=== PATIENT | female | born 1960 | race Caucasian/White ===

== ENCOUNTER → 2017-04-23 10:10 | Outpatient (POV) | payer OTHER, SELFPAY ==
[2017-04-23 10:56] VITALS: BP 158/91; PULSE 74; RESP 18; TEMP 37.1; O2SAT 100
--- NOTE | 2017-04-23 11:20 | HMH.PMCON ---
Assessment and Plan (1) Lumbosacral radiculopathy due to degenerative joint disease of spine Current visit: Yes Status: Chronic Category: Medical Code(s): M47.27 - Other spondylosis with radiculopathy, lumbosacral region (2) Degenerative joint disease (DJD) of lumbar spine Current visit: Yes Status: Chronic Qualifiers: Spinal osteoarthritis complication: with radiculopathy Qualified Code(s): M47.26 - Other spondylosis with radiculopathy, lumbar region Category: Medical Code(s): M47.816 - Spondylosis without myelopathy or radiculopathy, lumbar region - Assessment and plan all Dx Assessment and Plan for all problems:: We will seek approval and plan on lumbar epidural steroid injection under fluoroscopy at L4-L5. For now she is to continue with her Tylenol 3. HPI - Data of Consult Patient: new to practice Consult date: 04/23/17 Requesting Physician: Bennett Plummer MD Primary Care Provider: Demian Nova MD - Consult Narrative Reason for consult: Low back pain and leg pain History of present illness: Ms. Palumbo is a 56 year old female who has a long history of low back pain and leg pain. She has not had any injections in her back. She is currently on Tylenol 3 which is not giving her adequate relief. She has done physical therapy which has not given her adequate relief. Her MRI does show significant degenerative changes with bulging disc at L2-L3, L3-L4, L4-L5 and L5-S1 with significant neuroforaminal narrowing at L2-L3 and L5-S1. It is thought that she would benefit from a lumbar epidural steroid injection. She rates her pain at a 10 out of 10. She currently uses a walker for assistance. Most of her pain is in the back going down her legs right greater than left. She has had a right hip replacement which still is causing her problems. She also has some numbness and weakness down her legs. CC: Bennett Plummer MD [facility] History I have reviewed the patient's past medical history: Yes Medical History: Reports:: Hypertension Denies:: Diabetes Mellitus Type 1 Other Medical History: Reports: Arthritis (OA) - *Social History Smoking Status: Current every day smoker Tobacco Type: cigarettes # Packs/Day (cigarettes): 1 Alcohol Intake: never Occupational Status: disabled - Psychiatric History Expresses thoughts of harming self/others: None Suicide Plan Description: No Plan *Family Hx:: Cancer, Hypertension Review of Systems - Review of Systems Review of systems:: pertinent systems reviewed and negative unless documented below - *Musculoskeletal Reports abnormal walking, Reports back pain, Reports numbness, Reports radiating pain into limb, Reports stiffness - *Neurologic Reports abnormal walking, Reports radiating pain Meds Home Medications Medication Instructions Recorded Confirmed Type APAP 300Mg W/Cod 30Mg Thp 1 keerthi PO TID 04/23/17 04/23/17 History [Acetaminophen w/Codeine #3 Take Home Pack (6)] Albuterol Sulfate [Proventil-HFA 1 - 2 puffs IH Q4HP PRN 04/23/17 04/23/17 History 90mcg/puff Inh] Atorvastatin Calcium [Atorvastatin 20 mg PO DAILY 04/23/17 04/23/17 History 20mg Tab] Buspirone HCl [Buspar 10mg tablet] 10 mg PO DAILY 04/23/17 04/23/17 History Calcium Carbonate [Tums 500mg 500 mg PO Q4HP PRN 04/23/17 04/23/17 History chewtab] Calcium Phosphate Trib/Vit D3 1 each PO DAILY 04/23/17 04/23/17 History [Calcium + Vitamin D3 Gummies] Dicyclomine HCl [Bentyl 10mg 10 mg PO DAILY 04/23/17 04/23/17 History capsule] Lidocaine [Lidoderm 5% transdermal 1 each TP Q24H 04/23/17 04/23/17 History patch] Magnesium Oxide [Magnesium] 400 mg PO DAILY 04/23/17 04/23/17 History Melatonin 5 mg PO HS 04/23/17 04/23/17 History Metoprolol Tartrate [Lopressor 25 mg PO BID 04/23/17 04/23/17 History 25mg tablet] Trazodone HCl 50 mg PO HS 04/23/17 04/23/17 History Venlafaxine HCl [Venlafaxine HCl 75 mg PO DAILY 04/23/17 04/23/17 History ER] Venlafaxine HC
--- NOTE | 2017-04-23 11:23 | P.CONS_ITS ---
Assessment and Plan (1) Lumbosacral radiculopathy due to degenerative joint disease of spine Current visit: Yes Status: Chronic Category: Medical Code(s): M47.27 - Other spondylosis with radiculopathy, lumbosacral region (2) Degenerative joint disease (DJD) of lumbar spine Current visit: Yes Status: Chronic Qualifiers: Spinal osteoarthritis complication: with radiculopathy Qualified Code(s): M47.26 - Other spondylosis with radiculopathy, lumbar region Category: Medical Code(s): M47.816 - Spondylosis without myelopathy or radiculopathy, lumbar region - Assessment and plan all Dx Assessment and Plan for all problems:: We will seek approval and plan on lumbar epidural steroid injection under fluoroscopy at L4-L5. For now she is to continue with her Tylenol 3. HPI - Data of Consult Patient: new to practice Consult date: 04/23/17 Requesting Physician: Bennett Plummer MD Primary Care Provider: Demian Nova MD - Consult Narrative Reason for consult: Low back pain and leg pain History of present illness: Ms. Palumbo is a 56 year old female who has a long history of low back pain and leg pain. She has not had any injections in her back. She is currently on Tylenol 3 which is not giving her adequate relief. She has done physical therapy which has not given her adequate relief. Her MRI does show significant degenerative changes with bulging disc at L2-L3, L3-L4, L4-L5 and L5-S1 with significant neuroforaminal narrowing at L2-L3 and L5-S1. It is thought that she would benefit from a lumbar epidural steroid injection. She rates her pain at a 10 out of 10. She currently uses a walker for assistance. Most of her pain is in the back going down her legs right greater than left. She has had a right hip replacement which still is causing her problems. She also has some numbness and weakness down her legs. CC: Bennett Plummer MD [facility] History I have reviewed the patient's past medical history: Yes Medical History: Reports:: Hypertension Denies:: Diabetes Mellitus Type 1 Other Medical History: Reports: Arthritis (OA) - *Social History Smoking Status: Current every day smoker Tobacco Type: cigarettes # Packs/Day (cigarettes): 1 Alcohol Intake: never Occupational Status: disabled - Psychiatric History Expresses thoughts of harming self/others: None Suicide Plan Description: No Plan *Family Hx:: Cancer, Hypertension Review of Systems - Review of Systems Review of systems:: pertinent systems reviewed and negative unless documented below - *Musculoskeletal Reports abnormal walking, Reports back pain, Reports numbness, Reports radiating pain into limb, Reports stiffness - *Neurologic Reports abnormal walking, Reports radiating pain Meds Home Medications Medication Instructions Recorded Confirmed Type APAP 300Mg W/Cod 30Mg Thp 1 keerthi PO TID 04/23/17 04/23/17 History [Acetaminophen w/Codeine #3 Take Home Pack (6)] Albuterol Sulfate [Proventil-HFA 1 - 2 puffs IH Q4HP PRN 04/23/17 04/23/17 History 90mcg/puff Inh] Atorvastatin Calcium [Atorvastatin 20 mg PO DAILY 04/23/17 04/23/17 History 20mg Tab] Buspirone HCl [Buspar 10mg tablet] 10 mg PO DAILY 04/23/17 04/23/17 History Calcium Carbonate [Tums 500mg 500 mg PO Q4HP PRN 04/23/17 04/23/17 History chewtab] Calcium Phosphate Trib/Vit D3 1 each PO DAILY 04/23/17 04/23/17 History [Calcium + Vitamin D3 Gummies] Dicyclomine HCl [Bentyl 10mg 10 mg PO DAILY
== END ==
PROVIDERS: PCP Emergency Medicine; Visit Provider Anesthesiology
DX: M47.26 Other spondylosis with radiculopathy, lumbar region (principal)
CPT/HCPCS: 99202

== ENCOUNTER 2017-06-01 12:37 | Day surgery (SDC) | payer OTHER, SELFPAY ==
[2017-06-01 13:25] VITALS: BP 145/68; PULSE 74; TEMP 36.7; O2SAT 98; BMI 29.5
--- NOTE | 2017-06-01 14:00 | HMH.PMPROC ---
- Procedure Date: 06/01/17 Time: 14:00 Anesthesiologist:: Bennett Plummer MD Complications:: None Pre-procedure Diagnosis:: Degenerative disc disease of lumbar spine with lumbar radiculopathy symptoms Post-procedure Diagnosis:: Same Indications for Procedure:: This patient is a pleasant 56-year-old white female who we are treating for low back pain with lumbar radiculopathy symptoms. She has had a right hip replacement and had several problems with her right hip. She has pain radiating into her groin and down her legs in particular on the right side. We will do a lumbar epidural steroid injection today to see if this will give her some relief. MRI does show significant degenerative changes with bulging disc at L2-L3, L3-L4, L4-L5 and L5-S1 with neuroforaminal narrowing at L2-L3 and L5-S1. Procedure Details:: Lumbar epidural steroid injection under fluoroscopy Informed consent was obtained and the risk and benefits of the procedure was explained to the patient. The patient was taken to the procedure room. The patient was placed prone on the procedure table. The patient was prepped and draped in sterile fashion. C-arm fluoroscopy was used to view the lumbar spine. Skin and subcutaneous tissues were anesthetized using lidocaine. I placed an 18-gauge epidural needle and advanced into the L4-L5 interspace using fluoroscopic guidance and [id number] to air. After confirmation of needle placement in the epidural space with dye I injected 2 mL of lidocaine 1.5% with Depo-Medrol 80 mg. Patient tolerated the procedure well with no complications. Plan and Disposition:: We will follow-up with her in 2 weeks. We will reevaluate her symptoms at that time. If she does not get any relief of her right hip and right leg symptoms we may look at her hip as cause of her pain symptoms.
[2017-06-01 14:08] VITALS: BP 166/88; PULSE 66; RESP 20
[2017-06-01 14:09] VITALS: BP 143/68; PULSE 68; RESP 20
--- NOTE | 2017-06-01 14:09 | P.PCN_ITS ---
- Procedure Date: 06/01/17 Time: 14:00 Anesthesiologist:: Bennett Plummer MD Complications:: None Pre-procedure Diagnosis:: Degenerative disc disease of lumbar spine with lumbar radiculopathy symptoms Post-procedure Diagnosis:: Same Indications for Procedure:: This patient is a pleasant 56-year-old white female who we are treating for low back pain with lumbar radiculopathy symptoms. She has had a right hip replacement and had several problems with her right hip. She has pain radiating into her groin and down her legs in particular on the right side. We will do a lumbar epidural steroid injection today to see if this will give her some relief. MRI does show significant degenerative changes with bulging disc at L2-L3, L3-L4, L4-L5 and L5-S1 with neuroforaminal narrowing at L2-L3 and L5- S1. Procedure Details:: Lumbar epidural steroid injection under fluoroscopy Informed consent was obtained and the risk and benefits of the procedure was explained to the patient. The patient was taken to the procedure room. The patient was placed prone on the procedure table. The patient was prepped and draped in sterile fashion. C-arm fluoroscopy was used to view the lumbar spine. Skin and subcutaneous tissues were anesthetized using lidocaine. I placed an 18-gauge epidural needle and advanced into the L4-L5 interspace using fluoroscopic guidance and [id number] to air. After confirmation of needle placement in the epidural space with dye I injected 2 mL of lidocaine 1.5 % with Depo-Medrol 80 mg. Patient tolerated the procedure well with no complications. Plan and Disposition:: We will follow-up with her in 2 weeks. We will reevaluate her symptoms at that time. If she does not get any relief of her right hip and right leg symptoms we may look at her hip as cause of her pain symptoms.
[2017-06-01 14:14] VITALS: BP 139/75; PULSE 74; O2SAT 98
== END 2017-06-01 14:20 | disposition home or self-care (01) ==
LOC: SC.PAINP 12:38
PROVIDERS: PCP Emergency Medicine; Visit Provider Anesthesiology
DX: M51.16 Intervertebral disc disorders with radiculopathy, lumbar region (principal)
CPT/HCPCS: 62323; J1040; Q9966

== ENCOUNTER → 2017-06-18 14:36 | Outpatient (POV) | payer OTHER, SELFPAY ==
[2017-06-18 14:42] VITALS: BP 150/65; PULSE 77; RESP 18; TEMP 36.4; O2SAT 95; BMI 29.5
--- NOTE | 2017-06-18 16:20 | HMH.PAINSOAP ---
[facility] Pain Management SOAP Note Subjective:: Patient is a pleasant 56-year-old white female who presents today for follow-up after lumbar epidural steroid injection. Patient states she had no relief from this injection. Patient states most of her pain is in her low back and right hip. Patient has not been seen by a neurosurgeon. Patient states years ago she was told by a surgeon that if she had surgery she would be wheelchair bound. Patient does not remember the name of the surgeon. Patient and I had a long discussion about her symptomology. Most of her pain being in her right hip which was replaced and her right leg. Also in her low back. Patient denies any pain in her left leg. Patient rates her pain a 9 out of 10 today. Patient is currently being medically managed with Tylenol 3 and clonazepam. Patient is asking me about prescription medications. When I discussed with her she was unsure what she was taking. She states she does not know she is taking any anti-inflammatories or not. ROS General: no recent weight change, no fever, no sleep disturbances Respiratory: no cough, no shortness of air, no recurring pulmonary infections Cardiovascular/Peripheral Vascular: No chest pain, No palpitations, no edema, no shortness of breath. Gastrointestinal: no incontinence, normal bowel movements reported Genitourinary: no incontinence Musculoskeletal: Back pain, right hip pain Psychiatric: normal mood/ affect Neurological: Weakness in the right lower extremity at times, [denies balance issues] Objective:: Physical Exam General: Alert and oriented x3, no acute distress, pleasant and cooperative, [on room air] Lungs: Resps E/U, Symmetrical chest expansion, Eyes: PERRL Musculoskeletal: Flexion and extension of lumbar spine somewhat guarded secondary to pain, deep tendon reflexes normal, strength in upper and lower extremities [5/5], [abnormal gait noted] Neurological: speech clear, welder apprentice arc equal, no gross sensory deficits Assessment:: Degenerative disc disease of the lumbar spine with lumbar radiculopathy symptoms, right hip pain Plan:: Patient does have recent MRI showing nerve impingement. I believe it would be beneficial to have a neurosurgeon opinion on this. Patient and I discussed potentially a neurostimulator if surgery is not an option. Patient states that she is scared of surgery. And I told her that I think that whether she decides to have surgery not an opinion would be beneficial. We will send her to Dr. Viera. I discussed with the patient that she needs to bring her disc of her MRI to the appointment. Patient is currently living in [facility]. This note was dictated using voice recognition software and may contain errors or omissions
--- NOTE | 2017-06-18 16:24 | P.CONS_ITS ---
[facility] Pain Management SOAP Note Subjective:: Patient is a pleasant 56-year-old white female who presents today for follow-up after lumbar epidural steroid injection. Patient states she had no relief from this injection. Patient states most of her pain is in her low back and right hip. Patient has not been seen by a neurosurgeon. Patient states years ago she was told by a surgeon that if she had surgery she would be wheelchair bound. Patient does not remember the name of the surgeon. Patient and I had a long discussion about her symptomology. Most of her pain being in her right hip which was replaced and her right leg. Also in her low back. Patient denies any pain in her left leg. Patient rates her pain a 9 out of 10 today. Patient is currently being medically managed with Tylenol 3 and clonazepam. Patient is asking me about prescription medications. When I discussed with her she was unsure what she was taking. She states she does not know she is taking any anti-inflammatories or not. ROS General: no recent weight change, no fever, no sleep disturbances Respiratory: no cough, no shortness of air, no recurring pulmonary infections Cardiovascular/Peripheral Vascular: No chest pain, No palpitations, no edema, no shortness of breath. Gastrointestinal: no incontinence, normal bowel movements reported Genitourinary: no incontinence Musculoskeletal: Back pain, right hip pain Psychiatric: normal mood/ affect Neurological: Weakness in the right lower extremity at times, [denies balance issues] Objective:: Physical Exam General: Alert and oriented x3, no acute distress, pleasant and cooperative, [ on room air] Lungs: Resps E/U, Symmetrical chest expansion, Eyes: PERRL Musculoskeletal: Flexion and extension of lumbar spine somewhat guarded secondary to pain, deep tendon reflexes normal, strength in upper and lower extremities [5/5], [abnormal gait noted] Neurological: speech clear, dental services director equal, no gross sensory deficits Assessment:: Degenerative disc disease of the lumbar spine with lumbar radiculopathy symptoms , right hip pain Plan:: Patient does have recent MRI showing nerve impingement. I believe it would be beneficial to have a neurosurgeon opinion on this. Patient and I discussed potentially a neurostimulator if surgery is not an option. Patient states that she is scared of surgery. And I told her that I think that whether she decides to have surgery not an opinion would be beneficial. We will send her to Dr. Viera. I discussed with the patient that she needs to bring her disc of her MRI to the appointment. Patient is currently living in [facility]. This note was dictated using voice recognition software and may contain errors or omissions
== END ==
PROVIDERS: PCP Emergency Medicine; Visit Provider Clinical Nurse Specialist Family Health
DX: M25.551 Pain in right hip (principal); M54.16 Radiculopathy, lumbar region
CPT/HCPCS: 99212

== ENCOUNTER 2018-02-10 13:53 | Observation (INO) ==
--- NOTE | 2018-02-10 14:21 | Emergency Department Note ---
ED Disposition Clinical Impression: Coronary artery disease, Tobacco use disorder, Chest pain, Non-compliance Disposition: Still a Patient Condition on Discharge: Fair Referrals: Demian Nova MD [Primary Care Provider] - - Critical Care Critical Care Time: No Attestation: On 02/10/18, the high probability of a clinically significant, sudden or life threatening deterioration of the following system(s) required my full and direct attention, intervention and personal management. The time I documented below is in addition to time spent performing reported procedures but includes the following listed in this critical care notation. Medical Decision Making - Basilio Inquiry Pt receiving controlled substance: No Basilio was queried for this patient: No Vital Signs: 02/10/18 14:07 02/10/18 14:10 02/10/18 14:30 Temperature 98.1 F Temperature Source Oral Pulse Rate [Right Brachial] 80 83 81 Respiratory Rate 16 Blood Pressure [Right Arm] 138/70 138/70 158/77 H Blood Pressure Mean [Right Arm] 92 92 104 Blood Pressure Source [Right Arm] Automatic Cuff Automatic Cuff Automatic Cuff Blood Pressure Position [Right Arm] Sitting Sitting Sitting 02 Sat by Pulse Oximetry 100 93 L 95 Oxygen Delivery Method Room Air 02/10/18 15:00 Temperature Temperature Source Pulse Rate [Right Brachial] 86 Respiratory Rate Blood Pressure [Right Arm] 142/72 H Blood Pressure Mean [Right Arm] 95 Blood Pressure Source [Right Arm] Automatic Cuff Blood Pressure Position [Right Arm] Sitting 02 Sat by Pulse Oximetry 95 Oxygen Delivery Method - Lab Data Lab Results 02/10/18 14:15: WBC 10.5, RBC 3.63 L, Hgb 11.1 L, Hct 34.9 L, MCV 96.3, MCH 30.7, MCHC 31.8, RDW 13.9, Plt Count 285, MPV 7.5, Neut % (Auto) 73.1, Lymph % (Auto) 17.2, Coffey % (Auto) 6.4, Eos % (Auto) 3.0, Baso % (Auto) 0.3, Neut # (Auto) 7.7, Lymph # (Auto) 1.8, Coffey # (Auto) 0.7, Eos # (Auto) 0.3, Baso # (Auto) 0.0 02/10/18 14:15: Sodium 137, Potassium 3.2 L, Chloride 102, Carbon Dioxide 27, Anion Gap 11.2, BUN 9, Creatinine 0.75, Estimated Creat Clear 135, Estimated GFR 80, Est GFR ( Amer) 97, Glucose 93, Calcium 8.1 L, Troponin I < 0.02 02/10/18 14:15: D-Dimer 323 02/10/18 14:15: B-Natriuretic Peptide 34 Result diagrams: 02/10/18 14:15 02/10/18 14:15 Orders (Tests/Meds): ED MEDICATIONS Generic Name Dose Route Start Last Admin Trade Name Freq PRN Reason Stop Dose Admin Sodium Chloride 1,000 mls @ 500 mls/hr 02/10/18 14:30 02/10/18 14:36 Sod Chlor 0.9% 1000ml Bag IV 02/10/18 16:29 500 mls/hr .Q2H SARAVANAN Administration Discontinued Medications Generic Name Dose Route Start Last Admin Trade Name Freq PRN Reason Stop Dose Admin Aspirin 324 mg 02/10/18 13:58 02/10/18 14:05 Aspirin 81mg Chewable Tablet PO 02/10/18 13:59 324 mg ONCE ONE Administration Enoxaparin Sodium 100 mg 02/10/18 14:16 02/10/18 14:32 Lovenox 100mg/Ml Syringe SQ 02/10/18 14:17 100 mg ONCE ONE Administration Famotidine 20 mg 02/10/18 14:16 02/10/18 14:35 Pepcid 20mg/2ml Vial IV 02/10/18 14:17 20 mg ONCE ONE Administration Nitroglycerin 0.5 gm 02/10/18 14:16 02/10/18 14:36 Nitroglycerin 1 Inch Oint Udp TD 02/10/18 14:17 0.5 gm ONCE ONE Administration Potassium Chloride 40 meq 02/10/18 15:13 02/10/18 15:20 Klor-Con 20meq Tablet PO 02/10/18 15:14 40 meq ONCE ONE Administration ORDERS Category Date Time Status XR chest 2V Stat Exams 02/10/18 13:58 Taken - ECG Data Tracing #1 Normal sinus rhythm 89/min low voltage no acute ST segment or T wave changes. ECG initial impression date: 02/10/18 ECG initial impression time: 14:00 Medical Decision Narrative: Patient underwent an EKG with no acute findings her first set of troponin was negative. D-dimer was negative for PE and BNP was negative for congestive heart failure. She continued to have chest pain was treated with morphine as needed for pain in addition to Lovenox aspirin and Nitropaste. I spoke with Dr. Cabezas who agreed to admit her on behalf of Dr. Nova for [place] rule out protocol. Chest Pain HPI - General Chief Complaint: Chest Pain Stated Complaint: CHEST PAIN Time Seen by Provider: 02/10/18 14:10 Mode of Arrival: EMS Limitations: No Limitations Description of Symptoms (Recalled from ER Triage Doc. by RN): CHEST DISCOMFORT FOR TWO HOURS - History of Present Illness HPI narrative: 57 years old white female with history of coronary artery disease status post stenting 4 years ago. He was told that she has another blockage and she devel oped a similar chest pain she will need to be seen again.. 2 hours ago she developed the left-sided chest pressure radiating to the left arm similar to her prior pain.. Is rated 8/10 that is improved with nitroglycerin to 2/10 but reoccurred. He denies having shortness of breath or palpitations there is no nausea vomiting or diarrhea.. There is no hematoma to Mrs. hemoptysis coffee- ground emesis melanotic stool.. She was given aspirin by the ambulance that she blood thinner. I was informed by the EMS staff that the patient has history of drug use. MD complaint: chest pain indicative of cardiac Onset (ago): hour(s) (2-hour.) Time: 12:00 Activity at onset: during rest Pain location: left chest Severity: moderate Severity scale (1-10): 8 Pain radiation: LUE Relieving factors: nitroglycerin Exacerbating factors: nothing Risk Factors for CAD: Smoking Treatments prior to or on arrival for Cardiac Chest Pain: aspirin, nitroglycerin - Related Data Home Medications Medication Instructions Recorded Confirmed APAP 300Mg W/Cod 30Mg Thp 1 keerthi PO TID 04/23/17 01/24/18 [Acetaminophen w/Codeine #3 Take Home Pack (6)] Albuterol Sulfate [Proventil-HFA 1 - 2 puffs IH Q4HP PRN 04/23/17 01/24/18 90mcg/puff Inh] Atorvastatin Calcium [Atorvastatin 20 mg PO DAILY 04/23/17 01/24/18 20mg Tab] Buspirone HCl [Buspar 10mg tablet] 10 mg PO DAILY 04/23/17 01/24/18 Calcium Carbonate [Tums 500mg 500 mg PO Q4HP PRN 04/23/17 01/24/18 chewtab] Calcium Phosphate Trib/Vit D3 1 each PO DAILY 04/23/17 01/24/18 [Calcium + Vitamin D3 Gummies] Dicyclomine HCl [Bentyl 10mg 10 mg PO DAILY 04/23/17 01/24/18 capsule] Lidocaine [Lidoderm 5% transdermal 1 each TP Q24H 04/23/17 01/24/18 patch] Magnesium Oxide [Magnesium] 400 mg PO DAILY 04/23/17 01/24/18 Melatonin 5 mg PO HS 04/23/17 01/24/18 Metoprolol Tartrate [Lopressor 25 mg PO BID 04/23/17 01/24/18 25mg tablet] Trazodone HCl 50 mg PO HS 04/23/17 01/24/18 Venlafaxine HCl [Venlafaxine HCl 75 mg PO DAILY 04/23/17 01/24/18 ER] Venlafaxine HCl [Venlafaxine HCl 150 mg PO DAILY 04/23/17 01/24/18 ER] clonazePAM [Clonazepam] 0.5 mg PO BID 04/23/17 01/24/18 hydrOXYzine HCl [Hydroxyzine HCl] 50 mg PO Q6 04/23/17 01/24/18 Previous Rx's Medication Instructions Recorded Ketorolac Tromethamine [Toradol 10 mg PO Q6H 5 Days #20 tab 01/16/18 10mg tablet] Allergies Allergy/AdvReac Type Severity Reaction Status Date / Time No Known Allergies Allergy Verified 01/24/18 11:27 [facility] History I have reviewed the patient's past medical history: Yes Medical History: Reports:: Asthma, Hyperlipidemia, Hypertension Denies:: Diabetes Mellitus Type 1, Diabetes Mellitus Type 2 Other Medical History: Reports: Arthritis Laterality Cases: Right: Total Hip Replacement Other Surgeries: Yes: Cholecystectomy Comment: Hip Replacement - Social History Educational Level: Completed High School Smoking Status: Current every day smoker Tobacco Type: cigarettes # Packs/Day (cigarettes): 1 Alcohol Intake: never Occupational Status: disabled Housing: shelter - Psychiatric History Expresses thoughts of harming self/others: None Suicide Plan Description: No Plan Family Hx:: Cancer, Hypertension ROS Obtained: Yes All systems reviewed & no additional complaints Physical Exam - General General appearance: alert, in no apparent distress - Head Head exam: atraumatic, normocephalic, normal inspection - Eye Eye exam: Present: normal appearance, PERRL, EOMI. Absent: scleral icterus, nystagmus - ENT ENT exam: Present: normal exam, normal oropharynx, mucous membranes moist, TM's normal bilaterally, normal external ear exam - Neck Neck exam: Present: normal inspection, full ROM, trachea midline. Absent: tenderness, meningismus, lymphadenopathy - Chest Chest inspection: Present: normal inspection, symmetric chest wall rise. Absent: tenderness - Respiratory Respiratory exam: Present: normal lung sounds bilaterally. Absent: respiratory distress, wheezes - Cardiovascular Cardiovascular exam: Present: regular rate, normal rhythm, normal heart sounds. Absent: JVD - Abdominal Exam Abdominal exam: Present: soft, normal bowel sounds. Absent: distention, tenderness, guarding, rebound, rigidity - Extremities Exam Extremities exam: Present: normal inspection, full ROM, normal capillary refill. Absent: tenderness, calf tenderness - Back Exam Back exam: Present: normal inspection. Absent: tenderness - Neurological Exam Neurological exam: Present: alert, oriented X3, CN II-XII intact, motor sensory deficit, reflexes normal - Psychiatric Psychiatric exam: Present: normal affect, normal mood - Skin Skin exam: Present: warm, dry, intact, normal color - Lymphatic Lymphatic Findings: no adenopathy
[2018-02-10 14:34] LABS: Basophils % 0.3 % (0.1-2.0); Eosinophils # 0.3 K/mm3 (0.0-0.4); Hematocrit 34.9 % (37.0-47.0); Hemoglobin 11.1 g/dL (12.2-16.2); Lymphocytes # 1.8 K/mm3 (0.7-4.5); Lymphocytes % 17.2 % (10-50); Mean Corpuscular HGB Conc 31.8 g/dL (31.8-35.4); Mean Corpuscular Hemoglobin 30.7 pg (27.0-31.2); Mean Corpuscular Volume 96.3 fl (81-99); Mean Platelet Volume 7.5 fl (7.4-10.4); Monocytes # 0.7 K/mm3 (0.1-1.0); Monocytes % 6.4 % (1.7-9.3); Neutrophils # 7.7 K/mm3 (1.8-7.8); Neutrophils % 73.1 % (37.0-80.0); Platelet Count 285 K/mm3 (142-424); Red Blood Count 3.63 M/mm3 (4.20-5.40); Red Cell Distribution Width 13.9 % (11.5-17.5); White Blood Count 10.5 K/mm3 (4.8-10.8)
[2018-02-10 14:48] LABS: Anion Gap 11.2 mEq/L (5-15); Blood Urea Nitrogen 9 mg/dL (7-18); Calcium 8.1 mg/dL (8.5-10.1); Carbon Dioxide 27 mmol/L (21.0-32.0); Chloride 102 mmol/L (98-107); Glucose 93 mg/dL (74-106); Potassium 3.2 mmoL/L (3.5-5.1); Sodium 137 mmol/L (136-145)
[2018-02-10 16:57] LABS: Amphetamine/Metha Screen,Urine Negative ng/mL (<1000); Barbiturates Screen,Urine Negative ng/mL (<200); Benzodiazepines Screen,Urine Negative ng/mL (<200); Cannabinoid Screen,Urine Negative ng/mL (<50); Cocaine Screen,Urine Negative ng/mL (<300); Methadone Screen,Urine Negative ng/mL (<300); Opiate Screen,Urine Positive ng/mL (<300); Phencyclidine Screen,Urine Negative ng/mL (<25)
--- NOTE | 2018-02-11 07:26 | Pharmacy Consult Notes ---
[facility] Pharmacy VTE Monitoring - Patient Demographics Admission date: 02/10/18 Report Date: 02/11/18 Time: 07:25 Allergies/Adverse Reactions: Patient Allergies No Known Allergies Allergy (Verified 01/24/18 11:27) Height: 1.6 m Weight: 88.451 kg Patient Problems: Current Active Problems Coronary artery disease (Acute) Tobacco use disorder (Acute) Chest pain (Acute) Non-compliance (Acute) - VTE Risk Labs: VTE Related Lab Results Hgb 11.1 g/dL (12.2-16.2) L 02/10/18 14:15 Hct 34.9 % (37.0-47.0) L 02/10/18 14:15 Plt Count 285 K/mm3 (142-424) 02/10/18 14:15 BUN 9 mg/dL (7-18) 02/10/18 14:15 Creatinine 0.75 mg/dL (0.55-1.02) 02/10/18 14:15 Estimated Creat Clear 135 mL/min (50-200) 02/10/18 14:15 VTE Score: 2 - Prophylaxis VTE Prophylaxis Ordered?: Yes Types of VTE Prophylaxis: Pharmacological Pharmacologic Type: Enoxaparin - VTE Diagnosis Confirmed Treatment or plan recommended: Continue Current Treatment
[2018-02-11 07:35] LABS: Basophils % 0.3 % (0.1-2.0); Eosinophils # 0.2 K/mm3 (0.0-0.4); Eosinophils % 2.4 % (0.1-12.0); Hematocrit 35.9 % (37.0-47.0); Hemoglobin 11.5 g/dL (12.2-16.2); Lymphocytes # 1.6 K/mm3 (0.7-4.5); Lymphocytes % 24.5 % (10-50); Mean Corpuscular HGB Conc 32.1 g/dL (31.8-35.4); Mean Corpuscular Hemoglobin 31.1 pg (27.0-31.2); Mean Platelet Volume 8.4 fl (7.4-10.4); Monocytes # 0.5 K/mm3 (0.1-1.0); Monocytes % 7.3 % (1.7-9.3); Neutrophils # 4.4 K/mm3 (1.8-7.8); Neutrophils % 65.7 % (37.0-80.0); Platelet Count 220 K/mm3 (142-424); Red Blood Count 3.71 M/mm3 (4.20-5.40); White Blood Count 6.7 K/mm3 (4.8-10.8)
[2018-02-11 07:42] LABS: Anion Gap 12.1 mEq/L (5-15); Calcium 7.8 mg/dL (8.5-10.1); Chol/HDL Ratio 3.2 (1-3.5); Potassium 4.1 mmoL/L (3.5-5.1)
--- NOTE | 2018-02-11 07:50 | Consult Report ---
<Shyam Page U - Last Filed: 02/11/18 07:47> History of Present Illness Consult date: 02/11/18 Requesting physician: Demian Nova Consult reason: chest pain Chief complaint: Chest pain Additional Medical History:: 1. Chronic tobacco use 2. Hypertension 3. Hyperlipidemia 4. Chronic back pain with chronic opioid use 5. Coronary artery disease A. History of coronary artery stenting approximately 2013, [facility] 6. History of hip replacement, right side, resultant hip infection with resultant hospitalization/, during which patient suffered a stroke approximately 2014 7. Patient history of colitis with colonoscopy approximately 2016 History of present illness: 57-year-old white female admitted for chest pain. Patient with a history of coronary artery disease as noted above and recurrent chest pain reminiscent of her angina prior to her stent. Patient describes it as left-sided with radiation to the neck and left arm with associated shortness of breath. She denies any nausea, vomiting or diarrhea. She does have a history of colitis but states that it is under control. She does take opiates for chronic back pain. Her troponins were normal x3 chest x-ray and BNP were both normal. EKG is sinus with no acute changes. Cardiology consulted for evaluation of her admission. Patient's chest pain did significantly improve with treatment in the ER including nitrates. [facility] History Medical History: Reports:: Asthma, Hyperlipidemia, Hypertension Denies:: Cancer, Diabetes Mellitus Type 1, Diabetes Mellitus Type 2, MRSA Other Medical History: Reports: Arthritis Laterality Cases: Right: Total Hip Replacement Other Surgeries: Yes: Cholecystectomy Amputation: No Fractures: No - *Social History Educational Level: Completed High School Smoking Status: Never smoker Tobacco Type: cigarettes # Packs/Day (cigarettes): 1 Alcohol Intake: never Occupational Status: disabled Housing: other Household Members: other - Psychiatric History Expresses thoughts of harming self/others: None Suicide Plan Description: No Plan *Family Hx:: Cancer, Hypertension Meds Home Medications Medication Instructions Recorded Confirmed Type Albuterol Sulfate [Proventil-HFA 2 puffs IH BIDP PRN 04/23/17 02/11/18 History 90mcg/puff Inh] Atorvastatin Calcium [Atorvastatin 20 mg PO DAILY 04/23/17 02/11/18 History 20mg Tab] Buspirone HCl [Buspar 10mg tablet] 20 mg PO TID 04/23/17 02/11/18 History Magnesium Oxide [Magnesium] 400 mg PO DAILY 04/23/17 02/11/18 History Melatonin 5 mg PO HS 04/23/17 02/11/18 History Metoprolol Tartrate [Lopressor 25 mg PO BID 04/23/17 02/11/18 History 25mg tablet] Venlafaxine HCl [Venlafaxine HCl 75 mg PO DAILY 04/23/17 02/11/18 History ER] Venlafaxine HCl [Venlafaxine HCl 150 mg PO DAILY 04/23/17 02/11/18 History ER] clonazePAM [Clonazepam] 0.5 mg PO BID 04/23/17 02/11/18 History hydrOXYzine HCl [Hydroxyzine HCl] 50 mg PO Q6HP PRN 04/23/17 02/11/18 History Acetaminophen with Codeine 1 tab PO TIDP PRN 02/11/18 02/11/18 History [Tylenol with Codeine #3 tablet] Calcium Carbonate/Vitamin D3 1 each PO BID 02/11/18 02/11/18 History [Calcium 600-Vit D3 400 Tablet] Loperamide HCl [Loperamide] 2 mg PO Q4HP PRN 02/11/18 02/11/18 History Mirabegron [Myrbetriq] 50 mg PO DAILY 02/11/18 02/11/18 History Trazodone HCl [Desyrel 50mg tablet] 150 mg PO HS 02/11/18 02/11/18 History Allergies Allergy/AdvReac Type Severity Reaction Status Date / Time No Known Allergies Allergy Verified 01/24/18 11:27 Review of Systems - *Cardiovascular Reports chest pain, Reports shortness of breath with activity - *Respiratory Reports shortness of breath with activity - *Gastrointestinal Denies abdominal pain, Denies loose stools - *Genitourinary Denies blood in urine - *Musculoskeletal Reports back pain Exam Vital signs and Labs for Last 24 Hours: Temp Pulse Resp BP Pulse Ox 98.3 F 79 18 116/82 96 02/11/18 07:29 02/11/18 07:29 02/11/18 07:29 02/11/18 07:29 02/11/18 07:29 Laboratory Results - last 24 hr 02/10/18 14:15: WBC 10.5, RBC 3.63 L, Hgb 11.1 L, Hct 34.9 L, MCV 96.3, MCH 30.7, MCHC 31.8, RDW 13.9, Plt Count 285, MPV 7.5, Neut % (Auto) 73.1, Lymph % (Auto) 17.2, Bertie % (Auto) 6.4, Eos % (Auto) 3.0, Baso % (Auto) 0.3, Neut # (Auto) 7.7, Lymph # (Auto) 1.8, Bertie # (Auto) 0.7, Eos # (Auto) 0.3, Baso # (Auto) 0.0 02/10/18 14:15: Sodium 137, Potassium 3.2 L, Chloride 102, Carbon Dioxide 27, Anion Gap 11.2, BUN 9, Creatinine 0.75, Estimated Creat Clear 135, Estimated GFR 80, Est GFR ( Amer) 97, Glucose 93, Calcium 8.1 L, Troponin I < 0.02 02/10/18 14:15: D-Dimer 323 02/10/18 14:15: B-Natriuretic Peptide 34 02/10/18 14:29: Urine Opiates Screen Positive H, Urine Methadone Screen Negative, Ur Barbituates Screen Negative, Ur Phencyclidine Scrn Negative, Ur Amphetamines Screen Negative, U Benzodiazepines Scrn Negative, Urine Cocaine Screen Negative, U Marijuana (THC) Screen Negative 02/10/18 18:50: Troponin I < 0.02 02/10/18 21:40: Troponin I < 0.02 02/11/18 06:39: WBC 6.7 D, RBC 3.71 L, Hgb 11.5 L, Hct 35.9 L, MCV 97.0, MCH 31.1, MCHC 32.1, RDW 14.0, Plt Count 220, MPV 8.4, Neut % (Auto) 65.7, Lymph % (Auto) 24.5, Bertie % (Auto) 7.3, Eos % (Auto) 2.4, Baso % (Auto) 0.3, Neut # (Auto) 4.4, Lymph # (Auto) 1.6, Bertie # (Auto) 0.5, Eos # (Auto) 0.2, Baso # (Auto) 0.0 I & O for Last 24 hours: Intake & Output 02/08/18 02/09/18 02/10/18 02/11/18 11:59 11:59 11:59 11:59 Intake Total 1826 / 1826 Output Total 400 / 400 Balance 1426 / 1426 Weight 195 lb - *Routine Neck Exam Present: supple. Absent: JVD, carotid bruit - *Routine Respiratory Exam Present: CTA bilaterally. Absent: accessory muscle use, rales, rhonchi, wheezes - *Routine Cardiovascular Exam Present: RRR. Absent: murmur, gallop, rubs - *Routine Abdominal Exam Present: soft. Absent: tenderness, distended, guarding - *Routine Extremities Exam Present: edema. Absent: calf tenderness - *Routine Neurological Exam Present: alert, oriented X3, moving all extremities Assessment and Plan (1) Chest pain Current visit: Yes Status: Acute Category: Medical Code(s): R07.9 - Chest pain, unspecified (2) Hypertension Current visit: Yes Status: Acute Category: Medical Code(s): I10 - Essential (primary) hypertension (3) Hyperlipidemia Current visit: Yes Status: Acute Category: Medical Code(s): E78.5 - Hyperlipidemia, unspecified (4) Coronary artery disease Current visit: Yes Status: Acute Category: Medical Code(s): I25.10 - Atherosclerotic heart disease of [place] coronary artery without angina pectoris (5) Tobacco use disorder Current visit: Yes Status: Acute Category: Medical Code(s): F17.200 - Nicotine dependence, unspecified, uncomplicated (6) Chronic pain of both hips Current visit: No Status: Acute Category: Medical Code(s): M25.551 - Pain in right hip; M25.552 - Pain in left hip; G89.29 - Other chronic pain - Assessment and plan all Dx Assessment and Plan for all problems:: 1. With chest pain with previous coronary artery disease and multiple cardiac risk factors and LIZZY score of at least 2, would recommend proceeding with repeat cardiac catheterization to evaluate for progressive coronary artery disease. 2. Further recommendations to follow. 3. Patient admits that she is not been compliant with aspirin use. Recommend resuming 81 mg daily. <Demian Nova - Last Filed: 02/11/18 13:33> Exam Vital signs and Labs for Last 24 Hours: Temp Pulse Resp BP Pulse Ox 98.3 F 75 20 108/66 L 92 L 02/11/18 07:29 02/11/18 13:15 02/11/18 13:15 02/11/18 13:15 02/11/18 13:15 Laboratory Results - last 24 hr 02/10/18 14:15: WBC 10.5, RBC 3.63 L, Hgb 11.1 L, Hct 34.9 L, MCV 96.3, MCH 30.7, MCHC 31.8, RDW 13.9, Plt Count 285, MPV 7.5, Neut % (Auto) 73.1, Lymph % (Auto) 17.2, Bertie % (Auto) 6.4, Eos % (Auto) 3.0, Baso % (Auto) 0.3, Neut # (Auto) 7.7, Lymph # (Auto) 1.8, Bertie # (Auto) 0.7, Eos # (Auto) 0.3, Baso # (Auto) 0.0 02/10/18 14:15: Sodium 137, Potassium 3.2 L, Chloride 102, Carbon Dioxide 27, Anion Gap 11.2, BUN 9, Creatinine 0.75, Estimated Creat Clear 135, Estimated GFR 80, Est GFR ( Amer) 97, Glucose 93, Calcium 8.1 L, Troponin I < 0.02 02/10/18 14:15: D-Dimer 323 02/10/18 14:15: B-Natriuretic Peptide 34 02/10/18 14:29: Urine Opiates Screen Positive H, Urine Methadone Screen Negative, Ur Barbituates Screen Negative, Ur Phencyclidine Scrn Negative, Ur Amphetamines Screen Negative, U Benzodiazepines Scrn Negative, Urine Cocaine Screen Negative, U Marijuana (THC) Screen Negative 02/10/18 18:50: Troponin I < 0.02 02/10/18 21:40: Troponin I < 0.02 02/11/18 06:39: WBC 6.7 D, RBC 3.71 L, Hgb 11.5 L, Hct 35.9 L, MCV 97.0, MCH 31.1, MCHC 32.1, RDW 14.0, Plt Count 220, MPV 8.4, Neut % (Auto) 65.7, Lymph % (Auto) 24.5, Bertie % (Auto) 7.3, Eos % (Auto) 2.4, Baso % (Auto) 0.3, Neut # (Auto) 4.4, Lymph # (Auto) 1.6, Bertie # (Auto) 0.5, Eos # (Auto) 0.2, Baso # (Auto) 0.0 02/11/18 06:39: Sodium 141, Potassium 4.1 D, Chloride 109 H, Carbon Dioxide 24, Anion Gap 12.1, BUN 8, Creatinine 0.69, Estimated Creat Clear 127, Estimated GFR 88, Est GFR ( Amer) 106, Glucose 79, Calcium 7.8 L, Magnesium 1.9, Triglycerides 95, Cholesterol 82 L, LDL Cholesterol 37, VLDL Cholesterol 19, HDL Cholesterol 26 L, Cholesterol/HDL Ratio 3.2 I & O for Last 24 hours: Intake & Output 02/09/18 02/10/18 02/11/18 02/12/18 11:59 11:59 11:59 11:59 Intake Total 1826 / 1826 Output Total 400 / 400 Balance 1426 / 1426 Weight 195 lb Assessment and Plan (1) Chest pain Current visit: Yes Status: Acute Category: Medical Code(s): R07.9 - Chest pain, unspecified (2) Hypertension Current visit: Yes Status: Acute Category: Medical Code(s): I10 - Essential (primary) hypertension (3) Hyperlipidemia Current visit: Yes Status: Acute Category: Medical Code(s): E78.5 - Hyperlipidemia, unspecified (4) Coronary artery disease Current visit: Yes Status: Acute Category: Medical Code(s): I25.10 - Atherosclerotic heart disease of [place] coronary artery without angina pectoris (5) Tobacco use disorder Current visit: Yes Status: Acute Category: Medical Code(s): F17.200 - Nicotine dependence, unspecified, uncomplicated (6) Chronic pain of both hips Current visit: No Status: Acute Category: Medical Code(s): M25.551 - Pain in right hip; M25.552 - Pain in left hip; G89.29 - Other chronic pain
--- NOTE | 2018-02-11 13:29 | H&P/Discharge Summary ---
General - General Admission date:: 02/10/18 Discharge date: 02/11/18 *Admission Date: 02/10/18 *Chief complaint: chest pain *History of present illness: this wf from longterm presents with chest pain in the ed- she started with chest pain at longterm with known card disease - she was seen in the ed - years old white female with history of coronary artery disease status post stenting 4 years ago. He was told that she has another blockage and she developed a similar chest pain she will need to be seen again.. 2 hours ago she developed the left-sided chest pressure radiating to the left arm similar to her prior pain.. Is rated 8/10 that is improved with nitroglycerin to 2/10 but reoccurred. He denies having shortness of breath or palpitations there is no nausea vomiting or diarrhea.. There is no hematoma to Mrs. hemoptysis coffee- ground emesis melanotic stool.. She was given aspirin by the ambulance that she blood thinner.ient underwent an EKG with no acute findings her first set of troponin was negative. D-dimer was negative for PE and BNP was negative for congestive heart failure. She continued to have chest pain was treated with morphine as needed for pain in addition to Lovenox aspirin and Nitropaste. I spoke with Dr. Cabezas who agreed to admit her on behalf of Dr. Nova for SD rule out protocol. [facility] History I have reviewed the patient's past medical history: Yes Medical History: Reports:: Asthma, Hyperlipidemia, Hypertension Denies:: Cancer, Diabetes Mellitus Type 1, Diabetes Mellitus Type 2, MRSA Other Medical History: Reports: Arthritis Laterality Cases: Right: Total Hip Replacement Other Surgeries: Yes: Cholecystectomy Amputation: No Fractures: No - *Social History Educational Level: Completed High School Smoking Status: Never smoker Tobacco Type: cigarettes # Packs/Day (cigarettes): 1 Alcohol Intake: never Occupational Status: disabled Housing: other Household Members: other - Psychiatric History Expresses thoughts of harming self/others: None Suicide Plan Description: No Plan *Family Hx:: Cancer, Hypertension Review of Systems - Review of Systems Review of systems:: pertinent systems reviewed and negative unless documented below - Constitutional Denies fever(s) - Eyes Denies change in vision - ENT Denies sore throat - *Cardiovascular Reports chest pain, Reports shortness of breath - *Respiratory Denies cough, Denies coughing up blood - *Gastrointestinal Denies abdominal pain - *Genitourinary Denies blood in urine - *Musculoskeletal Reports back pain - Integumentary/Breasts Denies rash - *Neurologic Denies seizure-like activity - Psychiatric Reports anxiety Exam Vital signs and Labs for Last 24 Hours: Temp Pulse Resp BP Pulse Ox 98.3 F 75 20 108/66 L 92 L 02/11/18 07:29 02/11/18 13:15 02/11/18 13:15 02/11/18 13:15 02/11/18 13:15 Laboratory Results - last 24 hr 02/10/18 14:15: WBC 10.5, RBC 3.63 L, Hgb 11.1 L, Hct 34.9 L, MCV 96.3, MCH 30.7, MCHC 31.8, RDW 13.9, Plt Count 285, MPV 7.5, Neut % (Auto) 73.1, Lymph % (Auto) 17.2, Brown % (Auto) 6.4, Eos % (Auto) 3.0, Baso % (Auto) 0.3, Neut # (Auto) 7.7, Lymph # (Auto) 1.8, Brown # (Auto) 0.7, Eos # (Auto) 0.3, Baso # (Auto) 0.0 02/10/18 14:15: Sodium 137, Potassium 3.2 L, Chloride 102, Carbon Dioxide 27, Anion Gap 11.2, BUN 9, Creatinine 0.75, Estimated Creat Clear 135, Estimated GFR 80, Est GFR ( Amer) 97, Glucose 93, Calcium 8.1 L, Troponin I < 0.02 02/10/18 14:15: D-Dimer 323 02/10/18 14:15: B-Natriuretic Peptide 34 02/10/18 14:29: Urine Opiates Screen Positive H, Urine Methadone Screen Negative, Ur Barbituates Screen Negative, Ur Phencyclidine Scrn Negative, Ur Amphetamines Screen Negative, U Benzodiazepines Scrn Negative, Urine Cocaine Screen Negative, U Marijuana (THC) Screen Negative 02/10/18 18:50: Troponin I < 0.02 02/10/18 21:40: Troponin I < 0.02 02/11/18 06:39: WBC 6.7 D, RBC 3.71 L, Hgb 11.5 L, Hct 35.9 L, MCV 97.0, MCH 31.1, MCHC 32.1, RDW 14.0, Plt Count 220, MPV 8.4, Neut % (Auto) 65.7, Lymph % (Auto) 24.5, Brown % (Auto) 7.3, Eos % (Auto) 2.4, Baso % (Auto) 0.3, Neut # (Auto) 4.4, Lymph # (Auto) 1.6, Brown # (Auto) 0.5, Eos # (Auto) 0.2, Baso # (Auto) 0.0 02/11/18 06:39: Sodium 141, Potassium 4.1 D, Chloride 109 H, Carbon Dioxide 24, Anion Gap 12.1, BUN 8, Creatinine 0.69, Estimated Creat Clear 127, Estimated GFR 88, Est GFR ( Amer) 106, Glucose 79, Calcium 7.8 L, Magnesium 1.9, Triglycerides 95, Cholesterol 82 L, LDL Cholesterol 37, VLDL Cholesterol 19, HDL Cholesterol 26 L, Cholesterol/HDL Ratio 3.2 I & O for Last 24 hours: Intake & Output 02/09/18 02/10/18 02/11/18 02/12/18 11:59 11:59 11:59 11:59 Intake Total 1826 / 1826 Output Total 400 / 400 Balance 1426 / 1426 Weight 195 lb - Constitutional no acute distress, obese - *Routine HEENT Exam Head: Present: normocephalic Eye: Present: EOMI, PERRL ENT: Present: mucous membranes dry - *Routine Neck Exam Present: supple - *Routine Respiratory Exam Present: CTA bilaterally - *Routine Cardiovascular Exam Present: RRR, murmur, S4 - *Routine Abdominal Exam Present: soft - *Routine Extremities Exam Present: edema. Absent: calf tenderness - *Routine Skin Exam Present: intact - *Routine Neurological Exam Present: alert, oriented X3, CN II-XII intact - Routine Psychiatric Exam Present: normal affect Hospital Course Hospital Course: pt continued to have chest pain and was seen by card onic tobacco use 2. Hypertension 3. Hyperlipidemia 4. Chronic back pain with chronic opioid use 5. Coronary artery disease A. History of coronary artery stenting approximately 2013, [facility] 6. History of hip replacement, right side, resultant hip infection with resultant hospitalization/, during which patient suffered a stroke approximately 2014 7. Patient history of colitis with colonoscopy approximately 2017 History of present illness: 57-year-old white female admitted for chest pain. Patient with a history of coronary artery disease as noted above and recurrent chest pain reminiscent of her angina prior to her stent. Patient describes it as left-sided with radiation to the neck and left arm with associated shortness of breath. She denies any nausea, vomiting or diarrhea. She does have a history of colitis but states that it is under control. She does take opiates for chronic back pain. Her troponins were normal x3 chest x-ray and BNP were both normal. EKG is sinus with no acute changes. Cardiology consulted for evaluation of her admission. Patient's chest pain did significantly improve with treatment in the ER including nitrate ith chest pain with previous coronary artery disease and multiple cardiac risk factors and LIZZY score of at least 2, would recommend proceeding with repeat cardiac catheterization to evaluate for progressive coronary artery disease. 2. Further recommendations to follow. 3. Patient admits that she is not been compliant with aspirin use. Recommend resuming 81 mg daily. pt had cath which showed sig abn - The left main artery has a distal concentric 80% stenosis 2. The left anterior descending artery is proximally 10-20% stenosed with mid vessel 50% stenoses 3. The circumflex artery is a nondominant vessel and has mid vessel 40% stenoses 4. The right coronary artery has a stent in the proximal to mid segment with 50% concentric in-stent restenosis and distal 60-70% stenosis. A large RV marginal branch has a proximal 8090% stenosis 5. The NUGENT ventriculogram reveals normal 65% 6. The left ventricular end-diastolic pressure 20 mmHg IMPRESSION: 1. Severe distal left main disease with moderate to severe disease in the right coronary artery 2. Normal ejection fraction 3. Elevated LVEDP PLAN: 1. Patient requires transfer [facility] for inpatient coronary artery bypass surgery 2. Continue with aspirin and high-dose statin perioperatively Results Labs on day of discharge: Labs from last 24 hours 02/11/18 02/11/18 02/10/18 06:39 06:39 21:40 WBC 6.7 D RBC 3.71 L Hgb 11.5 L Hct 35.9 L MCV 97.0 MCH 31.1 MCHC 32.1 RDW 14.0 Plt Count 220 MPV 8.4 Neut % (Auto) 65.7 Lymph % (Auto) 24.5 Brown % (Auto) 7.3 Eos % (Auto) 2.4 Baso % (Auto) 0.3 Neut # (Auto) 4.4 Lymph # (Auto) 1.6 Brown # (Auto) 0.5 Eos # (Auto) 0.2 Baso # (Auto) 0.0 D-Dimer Sodium 141 Potassium 4.1 D Chloride 109 H Carbon Dioxide 24 Anion Gap 12.1 BUN 8 Creatinine 0.69 Estimated Creat Clear 127 Estimated GFR 88 Est GFR ( Amer) 106 Glucose 79 Calcium 7.8 L Magnesium 1.9 Troponin I < 0.02 B-Natriuretic Peptide Triglycerides 95 Cholesterol 82 L LDL Cholesterol 37 VLDL Cholesterol 19 HDL Cholesterol 26 L Cholesterol/HDL Ratio 3.2 Urine Opiates Screen Urine Methadone Screen Ur Barbituates Screen Ur Phencyclidine Scrn Ur Amphetamines Screen U Benzodiazepines Scrn Urine Cocaine Screen U Marijuana (THC) Screen 02/10/18 02/10/18 02/10/18 18:50 14:29 14:15 WBC RBC Hgb Hct MCV MCH MCHC RDW Plt Count MPV Neut % (Auto) Lymph % (Auto) Brown % (Auto) Eos % (Auto) Baso % (Auto) Neut # (Auto) Lymph # (Auto) Brown # (Auto) Eos # (Auto) Baso # (Auto) D-Dimer Sodium Potassium Chloride Carbon Dioxide Anion Gap BUN Creatinine Estimated Creat Clear Estimated GFR Est GFR ( Amer) Glucose Calcium Magnesium Troponin I < 0.02 B-Natriuretic Peptide 34 Triglycerides Cholesterol LDL Cholesterol VLDL Cholesterol HDL Cholesterol Cholesterol/HDL Ratio Urine Opiates Screen Positive H Urine Methadone Screen Negative Ur Barbituates Screen Negative Ur Phencyclidine Scrn Negative Ur Amphetamines Screen Negative U Benzodiazepines Scrn Negative Urine Cocaine Screen Negative U Marijuana (THC) Screen Negative 02/10/18 02/10/18 02/10/18 14:15 14:15 14:15 WBC 10.5 RBC 3.63 L Hgb 11.1 L Hct 34.9 L MCV 96.3 MCH 30.7 MCHC 31.8 RDW 13.9 Plt Count 285 MPV 7.5 Neut % (Auto) 73.1 Lymph % (Auto) 17.2 Brown % (Auto) 6.4 Eos % (Auto) 3.0 Baso % (Auto) 0.3 Neut # (Auto) 7.7 Lymph # (Auto) 1.8 Brown # (Auto) 0.7 Eos # (Auto) 0.3 Baso # (Auto) 0.0 D-Dimer 323 Sodium 137 Potassium 3.2 L Chloride 102 Carbon Dioxide 27 Anion Gap 11.2 BUN 9 Creatinine 0.75 Estimated Creat Clear 135 Estimated GFR 80 Est GFR ( Amer) 97 Glucose 93 Calcium 8.1 L Magnesium Troponin I < 0.02 B-Natriuretic Peptide Triglycerides Cholesterol LDL Cholesterol VLDL Cholesterol HDL Cholesterol Cholesterol/HDL Ratio Urine Opiates Screen Urine Methadone Screen Ur Barbituates Screen Ur Phencyclidine Scrn Ur Amphetamines Screen U Benzodiazepines Scrn Urine Cocaine Screen U Marijuana (THC) Screen DS: Diagnosis - Discharge Diagnosis (1) Chest pain Status: Acute (2) Hypertension Status: Acute (3) Hyperlipidemia Status: Acute (4) Coronary artery disease Status: Acute (5) Tobacco use disorder Status: Acute (6) Chronic pain of both hips Status: Acute (7) Unstable angina Status: Acute Discharge Medications - Medications for Discharge Home Medication List at Discharge: Jhonathan Aspirin [Aspirin 81mg EC Tab] 81 mg PO DAILY tablet. Aspirin [Aspirin 81mg EC Tab] 81 mg PO DAILY tablet. Trazodone HCl [Desyrel 50mg tablet] 150 mg PO HS tablet Trazodone HCl [Desyrel 50mg tablet] 50 mg PO HS tablet Continue Metoprolol Tartrate [Lopressor 25mg tablet] 25 mg PO BID Albuterol Sulfate [Proventil-HFA 90mcg/puff Inh] 2 puffs IH BIDP PRN PRN Reason: Shortness Of Breath Venlafaxine HCl [Venlafaxine HCl ER] 75 mg PO DAILY Melatonin 5 mg PO HS Magnesium Oxide [Magnesium] 400 mg PO DAILY hydrOXYzine HCl [Hydroxyzine HCl] 50 mg PO Q6HP PRN PRN Reason: Anxiety clonazePAM [Clonazepam] 0.5 mg PO BID Buspirone HCl [Buspar 10mg tablet] 20 mg PO TID Atorvastatin Calcium [Atorvastatin 20mg Tab] 20 mg PO DAILY Acetaminophen with Codeine [Tylenol with Codeine #3 tablet] 1 tab PO TIDP PRN PRN Reason: PAIN Mirabegron [Myrbetriq] 50 mg PO DAILY Trazodone HCl [Desyrel 50mg tablet] 150 mg PO HS Calcium Carbonate/Vitamin D3 [Calcium 600-Vit D3 400 Tablet] 1 each PO BID Venlafaxine HCl [Venlafaxine HCl ER] 150 mg PO DAILY Loperamide HCl [Loperamide] 2 mg PO Q4HP PRN PRN Reason: Diarrhea
== END 2018-02-12 00:17 | disposition short-term general hospital (02) ==
LOC: ER 13:53 → 2ND 13:53
PROVIDERS: ADMIT Family Medicine; ATTEND Emergency Medicine

== ENCOUNTER 2018-02-12 15:30 | Outpatient (RCR) | payer OTHER, SELFPAY ==
--- NOTE | 2018-01-22 15:59 | HMH.PTOPEV ---
PT Outpatient Evaluation Rehab PT Outpatient Evaluation Start: 01/22/18 15:45 Freq: Status: Active Protocol: Document 01/22/18 15:45 SHERRIJOSE (Rec: 01/22/18 15:59 [email or web address] [id number]) Electronically Signed By Misha Martinez PT 01/22/18 15:45 Outpatient Therapy Subjective History Subjective History This is the initial Physical Therapy evaluation for Carito Palumbo. Pt is a 57 y/o female referred to PT for c/o LE pain and weakness along with LBP. Pt reports she had R CASANDRA in 2016. PT reports she got infection, had antibiotic spaces, hip revision. PT reports she fell into coma ~ 1 month from infection. Pt reports she spent 1 [place] [facility] [place]hab to allow return to ambulation. Pt reports now she has pain and weakness in RLE specifically. Pt reports her R knee buckled causing her to fall down five steps 3- days ago. Chief Complaint Pain Weakness Symptom Type Ache Throb Sharp Stabbing Burning Symptoms Relieved By Rest/Positioning Symptoms Aggravated By Standing Bending/Stooping Physical Activity Walking Prior Functional Limitations None Current Functional Limitations Housework Standing Squatting Recreation Activity Walking Stairs Symptom Description Constant but Variable Level of pain today (0-10) 7 Pain scale - at its best (0-10) 5 Pain scale - at its worst (0-10) 10 Lumbopelvic Eval Posture Thoracic Spine Posture Standing Position Increased Kyphosis Lumbar Spine Posture Standing Position Decreased Lordosis Assistive device Assistive Devices Rolling / Wheeled Walker Palapation tenderness bilateral thoracic spinal tenderness Yes lumbar spinal tenderness Yes paraspinal tenderness Yes Lumbar/Sacral Palpation Findings Tenderness Muscle Guarding Manual Muscle Test Left Knee Extensio
== END 2018-02-12 15:35 | disposition home or self-care (01) ==
LOC: PT 15:30
PROVIDERS: Visit Provider Emergency Medicine
DX: M47.27 Other spondylosis with radiculopathy, lumbosacral region (principal); R29.898 Other symptoms and signs involving the musculoskeletal system; Z91.81 History of falling
CPT/HCPCS: 97110; 97163